=== PATIENT | female | born 1945 | race Caucasian/White ===

== ENCOUNTER → 2018-02-05 | Outpatient (CLI) | payer MEDICARE, OTHER | END | disposition home or self-care (01) | LOC: KCIC US 09:45 | DX: M71.21 Synovial cyst of popliteal space [Baker], right knee (principal) | CPT/HCPCS: 93971 ==

== ENCOUNTER → 2018-11-24 | Outpatient (CLI) | payer MEDICARE, OTHER ==
--- NOTE | 2018-11-24 13:29 | RAD ---
EXAM: Bilateral lower extremity venous Doppler sonogram. HISTORY: Pain and swelling. TECHNIQUE: Farooq scale and color Doppler sonographic evaluation of the bilateral lower extremity veins with spectral waveform analysis was performed. FINDINGS: There is normal color flow, normal compressibility and there are normal spectral waveforms in the common femoral, superficial femoral, popliteal, posterior tibial and greater saphenous veins. There is a 3.4 cm right popliteal cyst. IMPRESSION: 1. No Doppler evidence of lower extremity deep venous thrombosis. 2. Right Gonzalez's cyst. Electronically signed by: Luz Elena Bruno MD (11/24/2018 1:25 PM) [id number]
== END | disposition home or self-care (01) ==
LOC: US 11:57
PROVIDERS: ATTEND Family Medicine
DX: M79.89 Other specified soft tissue disorders (principal); M71.21 Synovial cyst of popliteal space [Baker], right knee
CPT/HCPCS: 93970

== ENCOUNTER → 2019-08-31 | Outpatient (CLI) | payer MEDICARE, OTHER ==
--- NOTE | 2019-08-31 19:24 | KCIC ---
Bilateral digital screening mammograms with 3-D tomosynthesis: Reason for examination: Routine screening. Comparison is made to previous studies dated 10/24/2018 and 10/22/2017. Bilateral mammograms in CC and oblique projections were obtained with 2-D imaging and 3-D tomosynthesis imaging on a Siemens Inspiration unit and reviewed on the workstation. Interpretation was made with the benefit of CAD. The skin and nipples show no abnormalities. No abnormal axillary lymph nodes are seen. The breast parenchyma shows scattered fatty and fibroglandular density. (Breast density: Category B.) There are no dominant masses, suspicious calcifications or architectural distortion. Benign calcifications are present. Impression: No evidence of malignancy. Recommend routine screening. BI-RAD Category 2: Benign. "Our facility is accredited by the [employer] Mammography Program." This patient's information has been entered into a reminder system for the patient to be notified with the results of her examination and a target date for the next mammogram. Electronically signed by: Duyen Angel MD (08/31/2019 7:21 PM) [id number]
== END | disposition home or self-care (01) ==
LOC: KCIC MAMMO 09:15
PROVIDERS: ATTEND Family Medicine
DX: N64.89 Other specified disorders of breast (principal)
CPT/HCPCS: 77066; G0279; 77062

== ENCOUNTER → 2019-12-03 | Outpatient (CLI) | payer MEDICARE, OTHER ==
--- NOTE | 2019-12-03 17:36 | KCIC ---
JAMI ART STUDY LOWER EXTREM LU, DUPLEX LOWER EXTREMITY BILAT Indication: Bilateral leg pain. Comparison: None. Procedure: Arterial pressures are measured in the arms and ankles. Real-time grayscale, color flow Doppler, and Doppler spectral waveform analysis of the arterial system of the lower extremity is performed. Findings: Right ankle: 1:30 mm Hg. Right arm: 121 mm Hg. Left ankle: 125 mm Hg. Left arm: 121 mm Hg. Right leg JAMI: 1.07. Left leg JAMI: 1.03. Findings: Biphasic or triphasic waveforms are present in the common femoral artery, superficial femoral artery, popliteal artery, anterior tibial artery, posterior tibial artery and dorsalis pedis artery. No significant velocity elevation to suggest stenosis. IMPRESSION: 1. No hemodynamically significant arterial stenosis bilaterally. 2. Normal ankle brachial indices bilaterally. Electronically signed by: Chato Robison DO (12/03/2019 5:33 PM) [id number]
== END | disposition home or self-care (01) ==
LOC: KCIC US 11:59
PROVIDERS: ATTEND Family Medicine
DX: M79.604 Pain in right leg (principal); M79.605 Pain in left leg
CPT/HCPCS: 93922; 93925

== ENCOUNTER → 2021-08-28 | Outpatient (CLI) | payer MEDICARE, OTHER ==
--- NOTE | 2021-08-28 19:01 | KCIC ---
Bilateral digital screening 2-D and 3-D (digital breast tomosynthesis) mammogram: Reason for examination: Routine screening. Comparison: Mammogram from 08/01/2015. Interpretation was made with the benefit of CAD. FINDINGS: Breast density: Category B. There are scattered areas of fibroglandular density. No suspicious breast mass, malignant appearing calcifications, or architectural distortion is seen. IMPRESSION: No evidence of malignancy. Assessment: BI-RADS 1. Negative. Recommendation: Routine screening mammograms. The patient will receive a letter with the results in the mail. Patient information will be entered i nto the mammography reminder system with a target recall date for the next mammogram. A reminder mohsen er will be generated. Electronically signed by: Afshan Salazar MD (08/28/2021 6:58 PM) [email or web address]
== END ==
LOC: KCIC MAMMO 12:42
PROVIDERS: ATTEND Family Medicine
DX: Z12.31 Encounter for screening mammogram for malignant neoplasm of breast (principal)
CPT/HCPCS: 77063; 77067